=== PATIENT | male | born 1965 | race Two or more races ===

== ENCOUNTER 2021-10-13 09:42 | Emergency (ER) | payer OTHER, SELFPAY ==
--- NOTE | ~2021-10-13 | CT_ITS ---
EXAMINATION: CT LUMBAR SPINE WITHOUT CONTRAST CLINICAL INFORMATION: [place] pop in back. Midline lumbar tenderness to palpation. COMPARISON: None TECHNIQUE: CT of the lumbar spine without intrathecal or intravenous contrast. Coronal and sagittal reconstructions. This CT examination was performed using dose optimization techniques as appropriate, variously including the following: *Automated exposure control *Adjustment of mA and/or kV according to patient size (this includes techniques or standardized protocols for targeted exams where dose is matched to indication/reason for exam; i.e. extremities or head) *Use of iterative reconstruction technique DLP; 300 mGy-cm FINDINGS: No acute lumbar spine fractures identified. Paraspinal muscle fat planes are maintained. Epidural fat planes maintained. The disc spaces are maintained. No spondylolisthesis spondylolysis identified. No significant neural foraminal narrowing is identified. There is mild anterior spurring seen L3-L5. There is an L5 -S1 disc bulge present with epidural fat planes maintained. Status post previous right retroperitoneal surgery. There is partial ankylosis of the right sacroiliac joint. CT/CT lumbar spine wo con IMPRESSION: No significant lumbar spine abnormality appreciated. Ankylosis of the right sacroiliac joint.
[2021-10-13 09:52] VITALS: BP 129/74; PULSE 70; RESP 16; TEMP 36.4; O2SAT 98; BMI 21.5
--- NOTE | 2021-10-13 10:02 | ED.GENADULT ---
HPI - General Adult General Chief complaint: Back Pain/Injury Stated complaint: popped something in back Time Seen by Provider: 10/13/21 09:57 Source: patient Mode of arrival: ambulatory History of Present Illness HPI narrative: 55-year-old male with past medical history of anxiety, asthma, depression, presenting to the emergency department complaining of low back pain radiating down bilateral lower extremities x 10 days s/p lifting heavy machinery into back of truck and hearing pop. Reports pain persistent, worse with any movement/ambulation, states legs feel shaky. Denies numbness, tingling, weakness, urinary incontinence, urinary retention. Onset (ago): day(s) Related Data Previous Rx's Medication Instructions Recorded acetaminophen 500 mg tablet 500 mg PO Q6H PRN #14 tab 10/13/21 (Tylenol Extra Strength) cyclobenzaprine 5 mg tablet 5 mg PO Q8H PRN 5 Days #14 tab 10/13/21 lidocaine 5 % topical patch 1 patch TOPICAL DAILY PRN #30 ea 10/13/21 (Lidoderm) MDD remove after 12 hours naproxen 500 mg tablet 500 mg PO BID PRN 10 Days #20 tab 10/13/21 tramadol 50 mg tablet 50 mg PO Q8H PRN 3 Days #9 tab 10/13/21 Allergies Allergy/AdvReac Type Severity Reaction Status Date / Time morphine [MORPHINE] Allergy Intermediate BURNING/ITCHING, Verified 10/13/21 09:55 hives nut - unspecified [NUTS] Allergy Unknown UNKNOW Verified 10/13/21 09:55 pear [PEAR] Allergy Unknown UNKNOWN Verified 10/13/21 09:55 strawberry [STRAWBERRY] Allergy Unknown UNKNOWN Verified 10/13/21 09:55 Review of Systems Review of Systems: Constitutional: No Chills ENT/Mouth: No Ear Pain, No Nasal Congestion, No sore throat, No Rhinorrhea, No Swallowing Difficulty Cardiovascular: No Chest Pain, No SOB Respiratory: No Cough Gastrointestinal: No Nausea, No Vomiting, No Diarrhea, No Abdominal pain Genitourinary:, No Dysuria, No Urinary Frequency, No Hematuria, No Urinary Incontinence/retention Musculoskeletal: + back pain, No Myalgias, No Joint Swelling Skin: No Skin Lesions, No rash Neuro: No Weakness, No Numbness, No Paresthesias Yes all other systems are reviewed and are negative Neurologic: Denies Sensory deficit (Neuro) PMFSH Past Medical History Attestation statement: The following information was validated with the patient. Medical History Anxiety Asthma Depression Social History Social History Advance Directives: No Advance Directives Information Provided: No Physical Exam ED Vital Signs: Vital Signs - 24 hr 10/13/21 09:52 10/13/21 11:21 Temperature 97.6 F Pulse Rate 70 Respiratory Rate 16 18 Blood Pressure 129/74 Pulse Oximetry 98 BMI result Body Mass Index 21.5 Const General: cooperative, healthy appearing and no acute distress Orientation/consciousness: patient oriented x3 Limitations: no limitations HENMT Head: Yes normal to inspection and Yes atraumatic Ears: hearing grossly normal bilaterally General nose exam: Normal external nose present Face and sinus: Yes normal facial exam Eyes General: appearance normal, both eyes and all related structures EOM: EOMs intact bilaterally Neck Other: No midline cervical spinous tenderness Neck: Yes normal visual inspection and Yes no meningeal signs Resp Effort & Inspection: normal respiratory effort and no respiratory distress Auscultation: clear to auscultation bilaterally Cardio Rate: regular rate Heart sounds: S1 normal heart sound present and S2 normal heart sound present General: Yes no CVA tenderness Back/Spine/Pelvis Other: + swelling to lower lumbar area with visible muscle spasming Back: no CVA tenderness Thoracic/Lumbar Spine: paraspinal muscle tenderness bilaterally in the lower lumbar and lumbar spinal tenderness Skin Rashes: no rashes Wounds: no wounds Neuro Other: Ambulating with slow steady gait. No saddle anesthesia. Strength intact throughout. General: patient oriented x3, gait normal, tone normal, moves all extremities and no meningeal signs Gait exam (Neuro): Normal gait present Sensory Exam: No Sensory deficit (Neuro) Extrem General: Yes normal to inspection Course Course Course Narrative: CT lumbar spine wo con IMPRESSION: No significant lumbar spine abnormality appreciated. Ankylosis of the right sacroiliac joint.? >> results discussed with patient. Does report mild symptomatic improvement after medications given in the ED. Will refer to Neurosurgery. Discussed worrisome signs and symptoms and strict return precautions, he verbalized understanding and feels safe for discharge home at this time Medical Decision Making MDM Narrative Medical decision making narrative: 55-year-old male with past medical history of anxiety, asthma, depression, presenting to the emergency department complaining of low back pain radiating down bilateral lower extremities x 10 days s/p lifting heavy machinery into back of truck and hearing pop. Reports pain persistent, worse with any movement/ambulation, states legs feel shaky. Denies numbness, tingling, weakness, urinary incontinence, urinary retention. Medical Records Medical records reviewed: Yes I reviewed the patient's medical records. Lab Data Lab results reviewed: Yes I reviewed the patient's lab results. Discharge Plan Discharge Clinical Impression: Bulging lumbar disc, Low back pain Patient Disposition: Home, Self-Care Instructions: Acute Low Back Pain (ED) Additional Instructions: CT shows a disc bulge at L5/S1. Your pain is likely musculoskeletal Flexeril is a muscle relaxer, take at night as it makes you drowsy, do not drive, drink alcohol, or operate machinery while taking it Naproxen as an anti-inflammatory / pain medication, take with food Lidoderm patches are numbing patches, apply to painful area Tramadol as an opiate pain medication, take only when pain is severe for the next 3 days In addition take Tylenol at home If symptoms persist or worsen, pain becomes unbearable, you developed urinary retention or incontinence, or weakness return to the ED Prescriptions: New tramadol 50 mg tablet 50 mg PO Q8H PRN (Reason: pain, severe) 3 Days Qty: 9 0RF lidocaine [Lidoderm] 5 % adhesive patch,medicated 1 patch topical DAILY MDD remove after 12 hours PRN (Reason: pain) Qty: 30 0RF Rx Instructions: leave on most painful area for up to 12 hrs naproxen 500 mg tablet 500 mg PO BID PRN (Reason: pain) 10 Days Qty: 20 0RF cyclobenzaprine 5 mg tablet 5 mg PO Q8H PRN (Reason: pain (scale score 7-10)) 5 Days Qty: 14 0RF acetaminophen [Tylenol Extra Strength] 500 mg tablet 500 mg PO Q6H PRN (Reason: pain or fever) Qty: 14 0RF Referrals: Adelina Montesinos MD [Physician] - 5 days
[2021-10-13] MEDS: Cyclobenzaprine HCl 10 MG TABLET PO (10:17)
[2021-10-13] MEDS: Ketorolac Tromethamine 30 MG/ML VIAL IM (10:18)
[2021-10-13] MEDS: Lidocaine 4 % Patch ADH..PATCH 1 PATCH TRANSDERMA (10:18)
[2021-10-13 11:10] VITALS: RESP 18
[2021-10-13 11:21] VITALS: RESP 18
== END 2021-10-13 11:43 | disposition home or self-care (01) ==
PROVIDERS: Emergency Provider Emergency Medicine; PCP Internal Medicine
DX: M51.26 Other intervertebral disc displacement, lumbar region (principal); J45.909 Unspecified asthma, uncomplicated
CPT/HCPCS: 72131; 96372; 99284; J1885

== ENCOUNTER 2021-11-06 07:14 | Outpatient (REF) | payer OTHER, SELFPAY ==
--- NOTE | ~2021-11-06 | MR_ITS ---
EXAMINATION: MR LUMBAR SPINE WITHOUT CONTRAST CLINICAL INFORMATION: 55-year-old with complaints of low back pain status post lifting injury. Evaluate for lumbar disc herniation. COMPARISON: 10/13/2021 CT. TECHNIQUE: MRI of the lumbar spine was obtained using routine sequences without contrast. FINDINGS: Coronal Alignment: Normal. Sagittal Alignment: Normal. Lumbosacral Junction: Normal. Five nonrib-bearing lumbar vertebrae. Vertebral Bodies: Normal height. Disc Spaces and Endplates: [id number] intervertebral disc space height loss at L2-L3 with mild disc desiccation and minor anterior marginal spondylosis. Minimal disc space height loss at L3-L4 with minor anterior marginal spondylosis. Disc desiccation noted between L2-L3 and L5-S1 inclusive. Minor anterior marginal spondylosis at L4-L5 and L1-L2. Spinal Canal: No abnormal developmental findings. Bone Marrow: No significant marrow-replacing process or bone marrow edema. Type II degenerative marrow signal changes seen along the endplates anteriorly between L1-L2 and L4-L5 inclusive. Conus Medullaris: Terminates at L1. Morphology and signal is normal. Intradural Nerve Roots: Within normal limits. L5-S1: Broad-based central to right paramedian disc protrusion noted with mild flattening of the dural sac asymmetric to the right without definite nerve root compression or displacement. No significant spinal canal stenosis. Minor bilateral facet arthrosis without neural foraminal stenosis. L4-L5: Minor annular bulging noted with a tiny left lateral annular fissure and minor bilateral facet arthrosis without significant canal or neural foraminal stenosis. L3-L4: Mild broad-based shallow left-sided foraminal/extraforaminal disc protrusion with concentric annular fissuring which contacts the extraforaminal segment of the exiting left L3 nerve root sleeve. Minor facet arthrosis bilaterally without significant canal stenosis. Minimal foraminal narrowing on the left. L2-L3: Broad-based left paramedian to subarticular/foraminal disc herniation with a small cephalad migrated extruded component in the foramen with no significant facet arthrosis or canal stenosis. [id number] foraminal narrowing noted on the left. Left lateral protrusion contacts the extraforaminal segment of the exiting left L2 nerve root. L1-L2: No disc bulge or herniation. No facet arthrosis, canal or neural foraminal stenosis. T12-L1: No disc bulge or herniation. No facet arthrosis, canal or neural foraminal stenosis. Paraspinal/Retroperitoneal: The paravertebral soft tissues are unremarkable. Incidental note is made of a pelvic kidney on the right. Possible 5 mm gallstone in the gallbladder. MR/MR lumbar spine wo con IMPRESSION: 1. Multilevel discogenic degenerative changes between L2-L3 and L5-S1 inclusive, as described above, with minor multilevel spondylosis. 2. Broad-based central to right paramedian disc protrusion at L5-S1, minor disc bulging with left lateral annular fissuring at L4-L5, left lateral disc herniations at L3-L4 and L2-L3, as described above, with [id number] foraminal narrowing on the left at L2-L3. 3. Multilevel mild bilateral facet arthrosis between L2-L3 and L5-S1 inclusive. 4. Right-sided pelvic kidney.
== END 2021-11-06 07:15 | disposition home or self-care (01) ==
LOC: HO.MRI 07:14
PROVIDERS: Visit Provider Physician Assistant
DX: M51.26 Other intervertebral disc displacement, lumbar region (principal)
CPT/HCPCS: 72148

== ENCOUNTER 2022-02-23 15:36 | Emergency (ER) | payer OTHER, SELFPAY ==
--- NOTE | ~2022-02-23 | CT_ITS ---
EXAMINATION: CT LUMBAR SPINE WITHOUT CONTRAST CLINICAL INFORMATION: History recent disc surgery with pain. COMPARISON: CT lumbar spine 10/13/2021 TECHNIQUE: Axial images were obtained through the lumbar spine. Coronal and sagittal reformatted images generated. No intravenous contrast was administered. This CT examination was performed using dose optimization techniques as appropriate, variously including the following: *Automated exposure control *Adjustment of mA and/or kV according to patient size (this includes techniques or standardized protocols for targeted exams where dose is matched to indication/reason for exam; i.e. extremities or head) *Use of iterative reconstruction technique DLP; 307 mGy-cm FINDINGS: Normal alignment of the lumbar spine. No subluxation. Vertebral body heights are maintained. No acute fracture. No endplate erosive/destructive changes. Similar appearance of mild multilevel degenerative disc disease most prominently at L2-L3 and L3-L4 with mild disc height loss, mild endplate sclerosis, and mild endplate proliferative change. Evidence of interval right hemilaminotomy at L5. Paravertebral soft tissues remarkable for absent right kidney with surgical clips in the right retroperitoneum. Normal caliber abdominal aorta with scant vascular calcification. No retroperitoneal lymphadenopathy. Bridging osteophytes across the anterior right SI joint. Right pelvic kidney, presumably transplant noted. Correlate with history. Findings at specific levels: T12-L1: No central canal or neuroforaminal stenosis. L1-L2: No central canal or neural foraminal stenosis. L2-L3: Mild central canal narrowing secondary to diffuse disc bulge. Mild right and mild to moderate moderate left neural foraminal stenosis. Suspected small left foraminal based disc protrusion. L3-L4: Minimal central canal narrowing secondary to diffuse disc bulge. Mild bilateral neural foraminal narrowing. L4-L5: Minimal annular bulge. No significant central canal narrowing. Mild bilateral neural foraminal narrowing. L5-S1: Status post right hemilaminotomy. Small broad-based posterior disc protrusion. Minimal central canal narrowing. Minimal bilateral neural foraminal narrowing. CT/CT lumbar spine wo con IMPRESSION: 1. No subluxation, fracture, or CT evidence of advanced discitis osteomyelitis complex. 2. Interval right hemilaminotomy at L5-S1. Assessment of nerve roots and spinal canal contents is limited due to CT technique. If concern for central canal or radicular pathology, recommend MRI for better assessment.
[2022-02-23 15:46] VITALS: PULSE 85; RESP 19; TEMP 36.5; O2SAT 98; BMI 21.7
[2022-02-23] MEDS: oxyCODONE HCl Immed Release 5 MG TABLET PO (16:46)
--- NOTE | 2022-02-23 16:51 | ED_ITS ---
HPI - Back Pain/Injury General Chief Complaint: Back Pain/Injury Stated Complaint: Back pain Time Seen by Provider: 02/23/22 16:08 Source: patient History of Present Illness HPI Narrative: Patient presents emergency department for evaluation of lumbar back pain. He states that around 02:00 o'clock this morning he stood up to get out of bed and he felt a sudden pop. He states that he felt this pop at the area of his surgical incision. In November 2021 he underwent surgery for lumbar disc herniations with radiculopathy. This was discovered on MRI while he is being followed by a neurosurgeon. He states that the pain feels exactly the same as his previous herniated disc. Oxycodone was being used for pain management prior to surgery with good relief. He has had no pain since a few weeks after his surgery until suddenly this morning. Denies fevers, chills, burning with micturition, urinary frequency/urgency/hesitancy, bladder or bowel dysfunction, numbness or tingling of the perineum or bilateral legs. Denies any known immune compromising conditions, personal history of cancer, or IV drug usage. MD elicited complaint: back pain Related Data Previous Rx's Medication Instructions Recorded acetaminophen 500 mg tablet 500 mg PO Q6H PRN pain or fever 10/13/21 (Tylenol Extra Strength) #14 tabs cyclobenzaprine 5 mg tablet 5 mg PO Q8H PRN pain (scale score 10/13/21 7-10) 5 days #14 tabs lidocaine 5 % topical patch 1 patch topical DAILY PRN pain #30 10/13/21 (Lidoderm) ea naproxen 500 mg tablet 500 mg PO BID PRN pain 10 days #20 10/13/21 tabs tramadol 50 mg tablet 50 mg PO Q8H PRN pain, severe 3 10/13/21 days #9 tabs lidocaine 5 % topical patch 1 patch topical DAILY #15 ea 02/23/22 (Lidoderm) oxycodone 5 mg tablet 5 mg PO Q8H PRN pain #10 tabs 02/23/22 Allergies Allergy/AdvReac Type Severity Reaction Status Date / Time morphine [MORPHINE] Allergy Intermediate BURNING/ITCHING, Verified 02/23/22 15:50 hives nut - unspecified [NUTS] Allergy Unknown UNKNOW Verified 02/23/22 15:50 pear [PEAR] Allergy Unknown UNKNOWN Verified 02/23/22 15:50 strawberry [STRAWBERRY] Allergy Unknown UNKNOWN Verified 02/23/22 15:50 Review of Systems Review of Systems: Constitutional: No weight loss, fever, chills, weakness or fatigue. Skin: No rash or itching. Cardiovascular: No chest pain, chest pressure or chest discomfort. No palpitations or pedal edema. Respiratory: No shortness of breath, cough or sputum production. Gastrointestinal: No anorexia, nausea, vomiting or diarrhea. No abdominal pain or blood in stool. Genitourinary: No burning micturition. No urinary frequency or incontinence. Neurologic: No headache, dizziness, syncope, unilateral weakness, ataxia, numbness or tingling in the extremities. No change in bowel or bladder control. Musculoskeletal: + Back pain as noted in HPI. No joint pain or stiffness. Hematologic: No bleeding or bruising. Lymphatics: No enlarged lymph nodes. Psychiatric:No depression or anxiety. Endocrine: No reports of sweating. No cold or heat intolerance. No polyuria or polydipsia. Yes all other systems are reviewed and are negative [facility] Past Medical History Attestation statement: The following information was validated with the patient. Source: old records reviewed Medical History Anxiety Asthma Depression Social History Social History Advance Directives: No Advance Directives Information Provided: No Physical Exam Vital Signs: Vital Signs: Last Vital Signs Temp 97.7 F 02/23/22 15:46 Pulse 85 02/23/22 15:46 Resp 19 02/23/22 15:46 Pulse Ox 98 02/23/22 15:46 O2 Del Method 02/23/22 15:46 BMI result Body Mass Index 21.7 Vital signs have been reviewed as normal and appeared to be correct. Blood pressure normal.? Heart rate normal.? Respiration rate normal. Temperature normal.? Oxygen saturation normal. Appearance: Alert.?Oriented to person, place and time. No acute distress.?Normal affect. Eyes: Pupils equal, round and reactive to light.? ENT: Pharynx normal.?? Neck: Normal inspection.? Neck supple.?? CVS: Heart sounds normal. Normal heart rate and rhythm.? Pulses normal; bilateral radial pulses 2+, bilateral posterior tibial/dorsalis pedis pulses 2+.? Respiratory: No respiratory distress.? Lung sounds clear to auscultation bilaterally?? Abdomen: Soft and non-tender. Normoactive bowel sounds. ?? Skin: Skin warm and dry.? Normal skin color.? Normal skin turgor.?? Extremities: No lower extremity edema.? No calf ttp? Back: + moderate paraspinal muscular tenderness from lumbar region to coccyx. No CVA tenderness. No midline spinal tenderness, step-off's, or deformity. Full ROM intact in bilateral lower extremities. Straight leg test positive on right; Straight leg test positive on left. No rashes, lesions, areas of induration or fluctuance, or signs of infection noted. Neuro: Moves all extremities spontaneously. 5/5 strength in hip extension/flexi on, abduction, adduction. Sensation to light touch intact bilaterally. Patellar and Achilles reflex 2+ bilaterally. No ataxia, gait normal and steady.. No focal neuro deficits. Course Course Course Narrative: Patient is a 56-year-old male with a past medical history of lumbar radiculopathy and disc herniation who presents emergency department today for acute onset lower back pain. He is ambulatory with a slow antalgic gait. Pain is most consistent with paraspinal muscular pain, although cannot completely exclude herniated disc. On neurological exam there are no deficits. Not consistent with spinal infection, epidural abscess, AAA, epidural abscess, or dissection. No high risk past medical history including incontinence, fever, immunosuppression, lumbar puncture, coagulopathy, significant trauma, recent unintentional weight loss, pulsatile mass, history of cancer, history of TB, h istory of IV drug use. However he has had recent surgery within the past few months, therefore will obtain CT of the lumbar spine for further evaluation Not consistent with pyelonephritis, urinary tract infection, renal calculi, appendicitis, diverticulitis. On exam no concern for cauda equina syndrome. Patient to receive oxycodone while in the emergency department. Disposition pending results. Reevaluation(s) Reevaluation #1: Lumbar CT reveals no subluxation, fracture, or evidence of discitis osteomyelitis, and interval right hemilaminotomy at L5-S1. As aforementioned no neurological deficits or concern for cauda equina syndrome. Discussed these findings with patient. Patient received injection of Decadron 6 mg IM. Advised outpatient follow-up with neurosurgeon, advised to contact our office to arrange for an appointment. Discussed rest, ice/heat, NSAIDs, given prescription for short course of oxycodone to use as needed. Reviewed worrisome signs and symptoms to return back to the emergency department for. All questions were answered, and patient was discharged home in stable condition, ambulatory with a slow steady gait out of the emergency department. MDM - Back Pain/Injury Medical Records Attestation: I reviewed the patient's medical records. Imaging Data CT lumbar spine: Radiologist's impression: CT/CT lumbar spine wo con IMPRESSION: ? 1. No subluxation, fracture, or CT evidence of advanced discitis osteomyelitis complex. 2. Interval right hemilaminotomy at L5-S1. Assessment of nerve roots and spinal canal contents is limited due to CT technique. If concern for central canal or radicular pathology, recommend MRI for better assessment. Discharge Plan Discharge Clinical Impression: Lumbar back pain Patient Disposition: Home, Self-Care Instructions: Acute Low Back Pain (ED) Additional Instructions: As we discussed, on your CT scan there were no acute abnormal findings in your lower back. You were given an injection of Decadron, while in the emergency department, this is a steroid to help decrease any inflammation to help alleviate your pain. You have been given a prescription for oxycodone to use at home, as this has helped in the past. This is a narcotic, it may be addictive, he should only use this for severe pain. Do not drive, go to work, operate any machinery, or drink alcohol while taking this medication Please contact your neurosurgeon to arrange for a follow-up visit regarding your pain. Follow-up with her primary care provider additionally as needed. Return to emergency department with any new or worsening symptoms or concerns. Prescriptions: New lidocaine [Lidoderm] 5 % adhesive patch,medicated 1 patch topical DAILY Qty: 15 0RF Rx Instructions: leave on most painful area for up to 12 hrs oxycodone 5 mg tablet 5 mg PO Q8H PRN (Reason: pain) Qty: 10 0RF Rx Instructions: Partial Fill upon patient request. No Action tramadol 50 mg tablet 50 mg PO Q8H PRN (Reason: pain, severe) 3 Days Qty: 9 0RF lidocaine [Lidoderm] 5 % adhesive patch,medicated 1 patch topical DAILY MDD remove after 12 hours PRN (Reason: pain) Qty: 30 0RF Rx Instructions: leave on most painful area for up to 12 hrs naproxen 500 mg tablet 500 mg PO BID PRN (Reason: pain) 10 Days Qty: 20 0RF cyclobenzaprine 5 mg tablet 5 mg PO Q8H PRN (Reason: pain (scale score 7-10)) 5 Days Qty: 14 0RF acetaminophen [Tylenol Extra Strength] 500 mg tablet 500 mg PO Q6H PRN (Reason: pain or fever) Qty: 14 0RF
[2022-02-23] MEDS: dexAMETHasone sod phosphate 4 MG/ML VIAL 6 MG IM (18:23)
== END 2022-02-23 19:37 | disposition home or self-care (01) ==
PROVIDERS: Emergency Provider Emergency Medicine
DX: M54.50 Low back pain, unspecified (principal)
CPT/HCPCS: 72131; 96372; 99283; 99284; J1100

== ENCOUNTER 2023-03-27 18:16 | Emergency (ER) | payer OTHER, SELFPAY ==
--- NOTE | ~2023-03-27 | XR_ITS ---
EXAMINATION: XR LUMBOSACRAL SPINE CLINICAL INFORMATION: Pain. COMPARISON: Correlation made with CT performed 02/23/2022 and MRI performed 11/06/2021 TECHNIQUE: Three views of the lumbosacral spine. FINDINGS: The vertebral bodies are normally aligned. There is minimal retrolisthesis L5 over S1. There is mild diffuse lumbar disc degenerative change with multilevel mild loss of disc space, diffuse endplate change and mild multilevel osteophytes. The vertebral body heights are maintained. The soft tissues are unremarkable XR/XR lumbar spine 2-3V IMPRESSION: Mild diffuse lumbar disc degenerative change. Minimal retrolisthesis L5 over S1. No fracture seen.
[2023-03-27 18:34] VITALS: BP 143/80; PULSE 69; RESP 18; TEMP 36.2; O2SAT 98; BMI 21.7
--- NOTE | 2023-03-27 18:38 | ED.GENADULT ---
HPI - General Adult General Chief complaint: Back Pain/Injury Stated complaint: back pain, hx of surgery Time Seen by Provider: 03/27/23 20:59 Source: patient Mode of arrival: ambulatory Limitations: no limitations History of Present Illness HPI narrative: Patient presents with acute lumbar back pain. Symptoms started 3 days ago. The pain is constant. It is exacerbated by movement. Pain can radiate down his lower extremities. He can be associated with numbness and tingling particularly in the feet bilaterally. There is no loss of bowel or bladder control. Denies any saddle paresthesias. He has a history of 2 spine surgeries, diskectomies. These were done at [facility] in [place]. Patient's pain is severe. He denies any fevers or chills. Denies any intravenous drug abuse. He has no prior treatment. Patient denies any urinary frequency, urgency or dysuria. Related Data Previous Rx's Medication Instructions Recorded cyclobenzaprine 10 mg tablet 10 mg PO TID PRN muscle spasm #14 03/27/23 tabs dexamethasone 4 mg tablet 4 mg PO DAILY #7 tabs 03/27/23 lidocaine 5 % topical patch 1 patch topical DAILY #15 ea 03/27/23 meloxicam 15 mg tablet 15 mg PO DAILY #14 tabs 03/27/23 oxycodone 5 mg tablet 5 mg PO Q8H PRN pain #10 tabs 03/27/23 Allergies Allergy/AdvReac Type Severity Reaction Status Date / Time morphine [MORPHINE] Allergy Intermediate BURNING/ITCHING, Verified 03/27/23 18:33 hives nut - unspecified [NUTS] Allergy Unknown UNKNOW Verified 03/27/23 18:33 pear [PEAR] Allergy Unknown UNKNOWN Verified 03/27/23 18:33 strawberry [STRAWBERRY] Allergy Unknown UNKNOWN Verified 03/27/23 18:33 Review of Systems Review of Systems: CONSTITUTIONAL: Denies weight loss, fever and chills. HEENT: Denies changes in vision and hearing. RESPIRATORY: Denies SOB and cough. CV: Denies palpitations no CP. GI: Denies abdominal pain, nausea, vomiting and diarrhea. : Denies dysuria and urinary frequency. MSK: + myalgia and joint pain. SKIN: Denies rash and pruritus. NEUROLOGICAL: Denies headache and syncope. PSYCHIATRIC: Denies recent changes in mood. Denies anxiety and depression. All other ROS are negative unless in HPI [facility] Past Medical History Medical History Depression Anxiety Asthma Social History Social History Smoked in Last 30 Days: No Use of substances other than those prescribed or required for medical reasons: Yes Substance Use Type: Marijuana Substance Use Frequency: Occasionally Advance Directives: No Advance Directives Information Provided: No Physical Exam ED Vital Signs: Vital Signs - 24 hr 03/27/23 18:34 03/27/23 19:46 Temperature 97.1 F 97.5 F Pulse Rate 69 67 Respiratory Rate 18 16 Blood Pressure 143/80 H 131/90 H Pulse Oximetry 98 99 Oxygen Delivery Method Room Air Room Air BMI result Body Mass Index 21.7 GEN: Well developed, no acute distress, alert, oriented HEENT: Normocephalic, atraumatic, normal external ears, nose appears normal, no oropharyngeal edema or exudates Eyes: Normal to appearance Neck: Supple, no lymphadenopathy Respiratory: Talks in complete sentences, no respiratory distress, clear to auscultation bilaterally Cardiovascular: Regular rate and rhythm, no murmurs rubs or gallops Abdomen: Soft, nontender, nondistended, no guarding, no rebound Back: No CVA tenderness, lumbar paraspinous tenderness, no midline tenderness Extremities: No clubbing cyanosis or edema Neurologic: No focal neurologic deficits, cranial nerves 2-12 intact, strength is 5/5 bilaterally Skin: No rash Course Course Course Narrative: RME: 57 yold male presents to the ED for low back pain after bending down and standing up quickly. Patient states h of back surgery this year. Reevaluation(s) Reevaluation #1: Patient's x-ray does not show any acute fracture. Does have history of 2 surgeries. Will treat with a cocktail of medications to hopefully assist with his radiculopathy. There is no evidence of acute cauda equinus syndrome, no history of physical consistent with epidural abscess. Patient be discharged to follow-up with his neurosurgeon. Time: 21:20 Medications Administered Discontinued Medications Generic Name Dose Route Start Last Admin Trade Name Freq PRN Reason Stop Dose Admin Acetaminophen 975 mg 03/27/23 21:15 03/27/23 21:31 Acetaminophen 325 Mg Tablet PO 03/27/23 21:16 975 mg ONCE ONE Administration Dexamethasone 10 mg 03/27/23 21:15 03/27/23 21:30 Dexamethasone 2 Mg Tablet PO 03/27/23 21:16 10 mg ONCE ONE Administration Naproxen 500 mg 03/27/23 21:15 03/27/23 21:30 Naproxen 500 Mg Tablet PO 03/27/23 21:16 500 mg ONCE ONE Administration Medical Decision Making Medical Decision Making [facility] Narrative: Patient presents with acute lumbar back pain. Examination not reveal any significant midline tenderness. Differential diagnosis includes lumbar radiculopathy, spinal stenosis, disc disease, muscle spasm, less likely to be epidural abscess or acute cauda equina syndrome. There are no red flag history or physical findings. There is no indication for an emergent MRI. X-ray was ordered prior to my evaluation which I will review the results. The meantime, I will recommend steroidal medication, nonsteroidal medicines as well as other additional analgesics. Differential Diagnosis Differential Diagnoses: The differential diagnosis associated with the presentation includes (See above) Admission/Observation Consideration of admission/observation: Escalation of care including admission/observation considered Independent Interpretation I performed an independent interpretation of an: Plain X-Ray (Lumbar spine: No acute findings) Radiology Impression Discussion of test interpretation with radiology: I have reviewed the radiologist's reading. Radiologist Impression: Impression: Mild diffuse lumbar disc degenerative change. Minimal retrolisthesis L5 over S1. No fracture seen. Prescription Management I considered prescription management with: Pain Medication Chronic Conditions Patient?s care impacted by: Other (Spine surgery) Discharge Plan Discharge Clinical Impression: Lumbar radiculopathy Patient Disposition: Home, Self-Care Instructions: Lumbar Radiculopathy (ED) Additional Instructions: for pain: Meloxicam 15 mg daily for 2 weeks Dexamethasone 4 mg daily for 1 week Lidocaine patch daily as needed Tylenol 1000 mg every 6 hours as needed Oxycodone 5 mg every 6 hours as needed - may cause constipation, drowsiness, be care mixing with muscle relaxer Cyclobenzaprine 10 mg ever 8 hours as needed for spasm - may cause drowsiness, be careful mixing with oxycodone Capsaicin Cream 3-4 times daily as needed - available over the counter (can get quite hot) Prescriptions: New meloxicam 15 mg tablet 15 mg PO DAILY Qty: 14 0RF cyclobenzaprine 10 mg tablet 10 mg PO TID PRN (Reason: muscle spasm) Qty: 14 0RF lidocaine 5 % adhesive patch,medicated 1 patch topical DAILY Qty: 15 0RF Rx Instructions: leave on most painful area for up to 12 hrs dexamethasone 4 mg tablet 4 mg PO DAILY Qty: 7 0RF oxycodone 5 mg tablet 5 mg PO Q8H PRN (Reason: pain) Qty: 10 0RF Rx Instructions: Partial Fill upon patient request. Discontinued tramadol 50 mg tablet 50 mg PO Q8H PRN (Reason: pain, severe) 3 Days Qty: 9 0RF lidocaine [Lidoderm] 5 % adhesive patch,medicated 1 patch topical DAILY MDD remove after 12 hours PRN (Reason: pain) Qty: 30 0RF Rx Instructions: leave on most painful area for up to 12 hrs naproxen 500 mg tablet 500 mg PO BID PRN (Reason: pain) 10 Days Qty: 20 0RF cyclobenzaprine 5 mg tablet 5 mg PO Q8H PRN (Reason: pain (scale score 7-10)) 5 Days Qty: 14 0RF acetaminophen [Tylenol Extra Strength] 500 mg tablet 500 mg PO Q6H PRN (Reason: pain or fever) Qty: 14 0RF lidocaine [Lidoderm] 5 % adhesive patch,medicated 1 patch topical DAILY Qty: 15 0RF Rx Instructions: leave on most painful area for up to 12 hrs oxycodone 5 mg tablet 5 mg PO Q8H PRN (Reason: pain) Qty: 10 0RF Rx Instructions: Partial Fill upon patient request. Referrals: Adelina Montesinos MD [Physician] - 5 days Stand Alone Forms: Work/School Release Interventions: ED Discharge Assessment Last Done: 03/27/23 21:59 Discharge Date/Time: 03/27/23 21:59
--- NOTE | 2023-03-27 19:32 | PC.NURSE ---
aox4. calm, coop. resting. reporting low/mid back pain/tenderness. talking well. +CMS. walked in from waiting room
[2023-03-27 19:46] VITALS: BP 131/90; PULSE 67; RESP 16; TEMP 36.4; O2SAT 99
[2023-03-27] MEDS: NaPROXEN 500 MG TABLET PO (21:30)
[2023-03-27] MEDS: dexAMETHasone 2 MG TABLET 10 MG PO (21:30)
[2023-03-27] MEDS: Acetaminophen 325 MG TABLET 975 MG PO (21:31)
== END 2023-03-27 21:59 | disposition home or self-care (01) ==
PROVIDERS: Emergency Provider Emergency Medicine
DX: M54.16 Radiculopathy, lumbar region (principal); F12.90 Cannabis use, unspecified, uncomplicated; Z79.899 Other long term (current) drug therapy
CPT/HCPCS: 72100; 99283; 99284; J8540

== ENCOUNTER 2023-07-17 13:00 | Emergency (ER) | payer OTHER, SELFPAY ==
[2023-07-17 13:08] VITALS: BP 137/99; PULSE 73; RESP 18; TEMP 36.6; O2SAT 98; BMI 21.7
--- NOTE | 2023-07-17 13:11 | ED.GENADULT ---
HPI - General Adult General Chief complaint: Wound/Laceration Stated complaint: Index Finger Lac R Hand Time Seen by Provider: 07/17/23 14:39 Source: patient, RN notes reviewed and old records reviewed Mode of arrival: ambulatory History of Present Illness HPI narrative: 57-year-old male with no significant past medical history presenting to the ED complaining of laceration to right index finger s/p working on car [employer]. States wrench/bold lashed backwards cutting finger. right-hand dominant. Denies direct crush injury. Tetanus unknown. Denies numbness/tingling or injury to the area Related Data Previous Rx's Medication Instructions Recorded cyclobenzaprine 10 mg tablet 10 mg PO TID PRN muscle spasm #14 03/27/23 tabs dexamethasone 4 mg tablet 4 mg PO DAILY #7 tabs 03/27/23 lidocaine 5 % topical patch 1 patch topical DAILY #15 ea 03/27/23 meloxicam 15 mg tablet 15 mg PO DAILY #14 tabs 03/27/23 oxycodone 5 mg tablet 5 mg PO Q8H PRN pain #10 tabs 03/27/23 cephalexin 500 mg capsule 500 mg PO QID 7 days #28 caps 07/17/23 Allergies Allergy/AdvReac Type Severity Reaction Status Date / Time morphine [MORPHINE] Allergy Intermediate BURNING/ITCHING, Verified 07/17/23 13:08 hives nut - unspecified [NUTS] Allergy Unknown UNKNOW Verified 07/17/23 13:08 pear [PEAR] Allergy Unknown UNKNOWN Verified 07/17/23 13:08 strawberry [STRAWBERRY] Allergy Unknown UNKNOWN Verified 07/17/23 13:08 Review of Systems Review of Systems: Constitutional: No Fever, No Chills ENT/Mouth: No Ear Pain, No Nasal Congestion, No sore throat, No Rhinorrhea, No Swallowing Difficulty Cardiovascular: No Chest Pain, No SOB Respiratory: No Cough Gastrointestinal: No Nausea, No Vomiting, No Abdominal pain Musculoskeletal: No joint pain, No Myalgias, No Joint Swelling Skin: + laceration, No rash Neuro: No Weakness, No Numbness, No Paresthesias Yes all other systems are reviewed and are negative Constitutional: Constitutional: Reports as per [facility] Past Medical History Attestation statement: The following information was validated with the patient. Source: old records reviewed Onset Date is defined in the Problem List Problems that require an onset date and time if occurred within 24 hrs of arrival to the ED Aortic Dissection and Rupture; Neurologic impairment; Cardiopulmonary Arrest; Endotracheal Intubation; Insertion or Replacement of Mechanical Circulatory Assist Device Medical History Depression Anxiety Asthma Social History Social History Substance Use Type: Marijuana Advance Directives: No Physical Exam ED Vital Signs: Vital Signs - 24 hr 07/17/23 13:08 Temperature 98 F Pulse Rate 73 Respiratory Rate 18 Blood Pressure 137/99 H Pulse Oximetry 98 Oxygen Delivery Method Room Air BMI result Body Mass Index 21.7 Const General: cooperative, healthy appearing and no acute distress Orientation/consciousness: patient oriented x3 Limitations: no limitations HENMT Head: Yes normal to inspection and Yes atraumatic Ears: hearing grossly normal bilaterally General nose exam: Normal external nose present Face and sinus: Yes normal facial exam Eyes General: appearance normal, both eyes and all related structures EOM: EOMs intact bilaterally Neck Neck: Yes normal visual inspection and Yes no meningeal signs Resp Effort & Inspection: normal respiratory effort and no respiratory distress Cardio Rate: regular rate Skin Other: +2 cm linear laceration noted to right index finger volar aspect overlying PIP. Underlying structures appear intact. No active bleeding. Full range of motion to digits intact. Neurovascularly intact. sensation intact to light touch. Finger to thumb opposition intact Rashes: no rashes Neuro General: patient oriented x3, tone normal and no meningeal signs Cranial nerves: Yes CN's II-XII intact bilaterally Gait exam (Neuro): Normal gait present Extrem General: Yes normal to inspection Course Course Course Narrative: RME- 57-year-old male presents for evaluation of index finger laceration. He has about a 3 cm laceration posterior surface of the right 2nd. Was working on his when a bolt snapped and cut my finger. ? He will require closure and a tetanus booster. Medications Administered Discontinued Medications Generic Name Dose Route Start Last Admin Trade Name Freq PRN Reason Stop Dose Admin Bacitracin 1 appl 07/17/23 15:46 07/17/23 15:50 Bacitracin Oint 0.9 Gm Packet TOPICAL 07/17/23 15:47 1 appl ONCE ONE Administration Protocol Diphtheria/Tetanus/Acell Pertussis 0.5 ml 07/17/23 13:11 07/17/23 15:13 Diphth,Pertus(Acell),Tet Adult 0.5 Ml Syringe IM 07/17/23 13:12 0.5 ml .ONCE ONE Administration Lidocaine HCl 5 ml 07/17/23 14:47 07/17/23 15:15 Lidocaine Hcl 1 % Mpf 5 Ml Vial INFILTRATI 07/17/23 14:48 5 ml ONCE ONE Administration Procedures Laceration Laceration 1: Site: hand Side (If applicable): right Size (cm): 2 Description: linear Depth: simple, single layer Local Anesthetic: lidocaine 1% (Digital block) Amount of anesthesia used (mL): 4 Pre-repair: wound explored, irrigated extensively and deep structures intact Skin layer closed with: nylon Size (cm): 4-0 Number of sutures: 5 Technique: simple, interrupted Medical Decision Making Medical Decision Making MDM Narrative: 57-year-old male with no significant past medical history presenting to the ED complaining of laceration to right index finger s/p working on car [employer]. On exam vital signs stable, NAD, nontoxic appearing, physical exam as noted above. Laceration will need suture repair. Low suspicion for fracture, tendon or ligamental injury Plan: Repair wound, update tetanus Please refer to course for remaining clinical decision making, interpretation of labs/imaging results, and discussions with consultants and/or family members. Differential Diagnosis Differential Diagnoses: The differential diagnosis associated with the presentation includes As above External Record Review External record reviewed: Inpatient record, Office record, Outpatient record, Prior outpatient labs, Prior outpatient radiology, Primary care record and Outside ED record Tests considered The following testing was considered but not selected: As above Prescription Management I considered prescription management with: Pain Medication and Antibiotic Discharge Plan Discharge Clinical Impression: Laceration Patient Disposition: Home, Self-Care Instructions: Laceration (DC) Additional Instructions: Your wounds were repaired today in the emergency department. Keep dry and clean. You need to return to any emergency department, urgent care, or your PCPs office in 7-10 days for suture removal Apply bacitracin and or Neosporin daily Once sutures are removed apply anti scar cream like Mederma If area begins look infected, is red, there is drainage, streaking, or you have fever please return to the emergency department Prescriptions: New cephalexin 500 mg capsule 500 mg PO QID 7 Days Qty: 28 0RF No Action meloxicam 15 mg tablet 15 mg PO DAILY Qty: 14 0RF cyclobenzaprine 10 mg tablet 10 mg PO TID PRN (Reason: muscle spasm) Qty: 14 0RF lidocaine 5 % adhesive patch,medicated 1 patch topical DAILY Qty: 15 0RF Rx Instructions: leave on most painful area for up to 12 hrs dexamethasone 4 mg tablet 4 mg PO DAILY Qty: 7 0RF oxycodone 5 mg tablet 5 mg PO Q8H PRN (Reason: pain) Qty: 10 0RF Rx Instructions: Partial Fill upon patient request. Referrals: Physician,Unknown J [Primary Care Provider] - 1 week (For suture removal) Interventions: ED Discharge Assessment Last Done: 07/17/23 15:54 Discharge Date/Time: 07/17/23 15:58
[2023-07-17] MEDS: Diphth,Pertus(ACell),Tet Adult 0.5 ML SYRINGE IM (15:13)
[2023-07-17] MEDS: Lidocaine HCl 1 % MPF 5 ML VIAL INFILTRATI (15:15)
[2023-07-17] MEDS: Bacitracin Oint 0.9 GM PACKET 1 APPL TOPICAL (15:50)
== END 2023-07-17 15:58 | disposition home or self-care (01) ==
PROVIDERS: Emergency Provider Emergency Medicine
DX: S61.411A Laceration without foreign body of right hand, initial encounter (principal); S60.511A Abrasion of right hand, initial encounter; W26.9XXA Contact with unspecified sharp object(s), initial encounter; Y93.9 Activity, unspecified; Y92.9 Unspecified place or not applicable; Y99.9 Unspecified external cause status; Z23 Encounter for immunization
CPT/HCPCS: 12041; 90471; 90715; 99282; 99284

== ENCOUNTER 2023-07-30 13:07 | Emergency (ER) | payer OTHER, SELFPAY ==
[2023-07-30 13:18] VITALS: BP 121/74; PULSE 68; RESP 16; TEMP 36.5; O2SAT 98; BMI 21.7
--- NOTE | 2023-07-30 13:28 | ED_ITS ---
HPI - General Adult General Chief complaint: Wound/Laceration Stated complaint: Suture Removal Time Seen by Provider: 07/30/23 13:27 Source: patient Mode of arrival: ambulatory Limitations: no limitations History of Present Illness HPI narrative: 57 yold male presents to the Ed for right index finger sutures removal. patient denies any redness, swelling, pus discharge, fever, chills, or foul odor. Related Data Previous Rx's Medication Instructions Recorded cyclobenzaprine 10 mg tablet 10 mg PO TID PRN muscle spasm #14 03/27/23 tabs dexamethasone 4 mg tablet 4 mg PO DAILY #7 tabs 03/27/23 lidocaine 5 % topical patch 1 patch topical DAILY #15 ea 03/27/23 meloxicam 15 mg tablet 15 mg PO DAILY #14 tabs 03/27/23 oxycodone 5 mg tablet 5 mg PO Q8H PRN pain #10 tabs 03/27/23 cephalexin 500 mg capsule 500 mg PO QID 7 days #28 caps 07/17/23 Allergies Allergy/AdvReac Type Severity Reaction Status Date / Time morphine [MORPHINE] Allergy Intermediate BURNING/ITCHING, Verified 07/17/23 13:08 hives nut - unspecified [NUTS] Allergy Unknown UNKNOW Verified 07/17/23 13:08 pear [PEAR] Allergy Unknown UNKNOWN Verified 07/17/23 13:08 strawberry [STRAWBERRY] Allergy Unknown UNKNOWN Verified 07/17/23 13:08 Review of Systems 2 Review of Systems: suture removal Yes all other systems are reviewed and are negative PMFSH Past Medical History Medical History Depression Anxiety Asthma Social History Social History Substance Use Type: Marijuana Advance Directives: No Advance Directives Information Provided: No Physical Exam ED Vital Signs: Vital Signs - 24 hr 07/30/23 13:18 Temperature 97.7 F Pulse Rate 68 Respiratory Rate 16 Blood Pressure 121/74 Pulse Oximetry 98 Oxygen Delivery Method Room Air BMI result Body Mass Index 21.7 Const General: cooperative, healthy appearing, comfortable, no acute distress and well developed Orientation/consciousness: oriented to person, oriented to place, oriented to time and patient oriented x3 HENMT Head: Yes normal to inspection, Yes No palpable skull fracture present, Yes normocephalic and Yes atraumatic Eyes General: appearance normal, both eyes and all related structures Neck Neck: Yes normal visual inspection, Yes full ROM, Yes no lymphadenopathy, Yes no meningeal signs, Yes trachea midline, Yes supple, No anterior neck swelling and No tender Chest Chest palpation & inspection: normal inspection of the chest and normal palpation of entire chest wall Resp Effort & Inspection: normal respiratory effort and able to speak in complete sentences Auscultation: clear to auscultation bilaterally Cardio Jugular venous distension: no JVD Heart sounds: S1 normal heart sound present and S2 normal heart sound present GI Inspection: Yes normal to inspection Palpation (GI): Soft to palpation, not firm, nontender, no guarding and not rigid General: Yes no CVA tenderness Back/Spine/Pelvis Back: no CVA tenderness and No back tenderness Skin General skin exam: no rashes or lesions noted, elasticity normal and turgor normal Neuro General: oriented to person, oriented to place, oriented to time, patient oriented x3, gait normal, tone normal, moves all extremities, Normal light touch and pain sensation, no meningeal signs and no focal motor deficits Extrem General: Yes normal to inspection, Yes full ROM and Yes capillary refill normal Hand/finger images: 2 1. sutures presents. negative for erythema, swelling, redness, foul odor,pus discharge, ecchymosis, or stiffness. Motor/neuro/vascular exam is intact of finger and rest of extremity. Psych Appearance: grossly normal, well kempt and not disheveled Course Course Course Narrative: RME: RIght index finger sutrue removal Medical Decision Making Medical Decision Making [facility] Narrative: 57 yold male presents to the ED for suture removal of right index finger. Laceration non-infected. 4 sutures removed. Cleaned with sterile saline and iodine. patient explained worrisome signs and informed to return to the ED if he has them. Differential Diagnosis Differential Diagnoses: The differential diagnosis associated with the presentation includes (suture removal) Admission/Observation Consideration of admission/observation: Escalation of care including admission/observation considered External Record Review External record reviewed: Other (Prior visits) Discharge Plan Discharge Clinical Impression: Visit for suture removal Patient Disposition: Home, Self-Care Instructions: Stitches Removal (ED) Additional Instructions: Sutures from the hands were removed this morning. Return to the ED for any redness, pus discharge, foul odor, fever, chills, inability to move finger, or any other concerning symptoms. If inability to move finger please follow-up with hand surgery to make sure there was no injury to the nerve or tendon. Prescriptions: No Action meloxicam 15 mg tablet 15 mg PO DAILY Qty: 14 0RF cyclobenzaprine 10 mg tablet 10 mg PO TID PRN (Reason: muscle spasm) Qty: 14 0RF lidocaine 5 % adhesive patch,medicated 1 patch topical DAILY Qty: 15 0RF Rx Instructions: leave on most painful area for up to 12 hrs dexamethasone 4 mg tablet 4 mg PO DAILY Qty: 7 0RF oxycodone 5 mg tablet 5 mg PO Q8H PRN (Reason: pain) Qty: 10 0RF Rx Instructions: Partial Fill upon patient request. cephalexin 500 mg capsule 500 mg PO QID 7 Days Qty: 28 0RF Referrals: [facility] [place] [facility] [Provider Group] (Right index finger deep laceration. evaluate for possible nerve or tendon injury.) Interventions: ED Discharge Assessment Last Done: 07/30/23 13:49 Discharge Date/Time: 07/30/23 13:50 Print Language: Mozambican
== END 2023-07-30 13:50 | disposition home or self-care (01) ==
PROVIDERS: Emergency Provider Emergency Medicine Emergency Medical Services
DX: Z48.02 Encounter for removal of sutures (principal); S61.210D Laceration without foreign body of right index finger without damage to nail, subsequent encounter; W45.8XXD Other foreign body or object entering through skin, subsequent encounter
CPT/HCPCS: 99282